=== PATIENT | female | born 1930 | race Caucasian/White ===

== ENCOUNTER 2017-01-23 12:42 | Inpatient (IN) | payer OTHER, BC ==
[~2017-01-23] VITALS: Ht 157.5 cm; Wt 51.9 kg
--- NOTE | ~2017-01-23 | HC ---
[facility] [place] [address] CONSULTATION Name: RIAZ CULP Room #: 515-P [facility] IN M.R.#: [id number] Admission: 01/23/17 Attend Phys: Osmar Cuellar MD Discharge: Date of : [birth year] Report #: [id number] THIS REPORT FOR: //name// CC: Osmar Uribekike DATE OF SERVICE: 01/23/2017 HISTORY OF PRESENT ILLNESS: The patient is an 86-year-old white female who was found on the floor by a neighbor. She was noted to sustain a fall with a closed head injury. She lied on the floor for an undetermined period of time, but it was at least a full day and possibly longer up to 2 days. She had rhabdomyolysis, acute renal insufficiency, significant mental status changes, urinary tract infection. CT of the head was negative. She was noted to have the cognitive changes, laceration to the right elbow. CPK level was elevated. Her renal insufficiency is improving as well as her CPK with IV fluids. She is still very weak and has decreased memory and judgment. We are seeing her in rehabilitation medicine consultation. CT of the head was negative for any acute changes. PAST MEDICAL HISTORY: Is otherwise, benign. She has had a hysterectomy. MEDICATIONS: Please see the full medication listing. SOCIAL HISTORY: She lives in a house alone, did not utilize any gait aids, one step in, 12 inside, laundry is in the basement. The patient refused to bring it up even though the son was encouraging this. Son also was encouraging a Life Alert, which the patient was refusing. The son is involved as well as the neighbor. Did not offer any current complaints of chest pain, shortness of breath or abdominal discomfort. HABITS: She does drink some alcohol at home. She drinks some whiskey. Would drink a bottle of whisky maybe every 3 weeks. The son thought she might take a drink per evening. He notes she did not drink at all while she was raising her children. No history of tobacco abuse. REVIEW OF SYSTEMS: No chest pain, shortness of breath or abdominal discomfort. Complains of overall weakness. Notes some frustration with being here. Indicates she does not want to use the Life Alert when she gets back home. PHYSICAL EXAMINATION: She is a pleasant 86-year-old white female, a bit cantankerous. EOMs are full. Facies are symmetric. Appears to have decreased insight into some safety issues. She may have some mild memory deficits, but I did not do any extensive testing. She seemed quite appropriate as far as her [address] [address] CONSULTATION Name: RIAZ CULP Room #: 515-P [facility] IN ..#: [id number] Admission: 01/23/17 Attend Phys: Osmar Cuellar MD Discharge: Date of : [birth year] Report #: [id number] questions during the conversation. She has functional range of motion with some mild shoulder discomfort, which apparently is premorbid. She has some decreased bilateral shoulder range of motion. She has good strength of elbow, wrist and hand. No lower extremities. Strength is only a grade 3+/5. There is no focal calf swelling. She definitely needed at least a min assist to try to come to stand. She is only ambulating a short distance. She needs minimum assistance. IMPRESSION: An 86-year-old white female with the following problem list: 1. Fall with closed head injury. 2. Rhabdomyolysis. 3. Acute renal insufficiency. 4. Urinary tract infection. 5. Mental status changes. 6. Mobility, ADL and cognitive deficits. PLAN: The patient is a candidate, would benefit from an acute in-hospital inpatient rehabilitation stay. From a preadmission screening perspective: 1. Prior level of function is well delineated above. 2. Expected level of improvement would be for the patient to become modified independent with transfers, mobility and ADLs, so that she can return back to home setting. 3. Evaluation of the patient's risk for clinical complications. She does have multiple medical comorbidities as noted above. 4. Condition that caused the need for rehabilitation would be the closed head injury. 5. Treatments needed would include PT, OT and speech, 1 hour per day each five days a week throughout the duration of the acute inpatient rehabilitation stay. 6. Anticipated discharge destination would be back to the home setting. 7. Would anticipate home healthcare therapies once she is ready for discharge. 8. She meets diagnostic criteria for an acute in-hospital inpatient rehabilitation stay. She meets medical necessity criteria. Would have rehabilitation psychology involved as well. She does have the tolerance for an acute rehabilitation level and has appropriate discharge goals back to the home setting. <ELECTRONICALLY SIGNED> By: Osmar Cuellar MD 01/26/17 1512 1151 06 Osmar Cuellar MD /nt
--- NOTE | ~2017-01-23 | HC ---
[facility] [place] [address] CONSULTATION Name: RIAZ CULP Room #: 515-P [facility] IN ..#: [id number] Admission: 01/23/17 Attend Phys: Osmar Cuellar MD Discharge: 02/03/17 Date of : [birth year] Report #: [id number] THIS REPORT FOR: //name// CC: Osmar Cuellar [facility] DATE OF SERVICE: 01/29/2017 NEUROBEHAVIORAL STATUS EXAM AGE: 86 ATTENDING PHYSICIAN: Osmar Cuellar M.D BOX CAR BRACER: Todd Mcclellan, PhD CLINICAL PRESENTATION: The patient is an 86-year-old female admitted to the [facility] rehabilitation unit for comprehensive inpatient rehabilitation program to improve functional mobility, activities of daily living and self-care and mental status secondary to a fall at her home in which she sustained a traumatic brain injury. She report to have fallen in her garage and had been unattended on the floor for approximately 2 days. She had a diagnosis that include rhabdomyolysis, acute renal insufficiency, mental status changes and a urinary tract infection. A complete description of her medical condition and history along with medications can be found in her medical record. Neuropsychological consultation was requested to provide assistance in the assessment of cognitive and emotional status and to provide recommendations and services. Prior to this most recent medical event, she was living by herself in her own home. She has 1 son. The patient is a high school graduate. 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 The patient was accurate in her description of the neighbor noticing that she was not responding to his attempts to inquire about her well being when emergency services were called to her home. TECHNIQUES UTILIZED: Clinical interview, review of medical records, staff consultation and behavioral observation, mini mental status exam 2 standard version, clock drawing and verbal fluency assessment (letter and category). EXAMINATION FINDINGS: The patient was alert and cooperative with the assessment. She accurately described events surrounding her admission. There is no evidence of aphasia. Her thoughts are logical and goal oriented. There is no evidence of thought disorder. She does not report suicidal ideation, auditory or visual hallucinations. She describes her symptoms as primarily associated with weakness and feelings of anxiety. She does not report [facility] [address] [place] [address] CONSULTATION Name: RIAZ CULP Room #: 515-P [facility] IN [facility].#: [id number] Admission: 01/23/17 Attend Phys: Osmar Cuellar MD Discharge: 02/03/17 Date of : [birth year] Report #: [id number] difficulty with memory, word finding, sleep or appetite. She does indicate that her cognition is within normal limits. Her performance on the MMSE 2 brief version is extremely low with a raw score of 11 of 16, T score 23, percentile rank of less than 1. She was 3/3 for initial registration, 3/5 for orientation to time and 5/[address]. She was 0/3 for immediate recall of 3 items after a brief time delay and distraction. Her score of 11/16, T score 23, percentile rank of less than 1 and a moderate to severe impairment is suggested. Performance on the MMSE 2 standard version is extremely low with a raw score 20 of 30. She was 1/5 for serial sevens, 2/2 for naming, 1/1 for repetition. She was 3/3 for auditory comprehension. She could read and follow single command and write a sentence. The patient was unable to accurately copy a simple geometric design. Difficulty with clock drawing is noted. She was unable to accurately place the numbers of the clock and hands at a designated time. Category fluency was in the borderline range with a raw score of 8, T score at 31 and percentile rank of 3. Letter fluency was extremely low with a raw score of 10 and T score of 26, which is at the first percentile. Throughout the assessment, the patient was showing evidence of perseveration and intrusion errors indicating confabulation. Severe impairment in the management of attention and concentration along with executive dysfunction is suggested. Suggeseted are severe deficits in problem solving, reasoning and judgment. DIAGNOSTIC IMPRESSION: Major neurocognitive disorder (dementia), possibly due to Alzheimer disease, without behavior disorder -- extent to be determined, likely in the moderate range. RECOMMENDATIONS: The patient will require 24-hour care to provide assistance in the management of medication, nutrition and overall safety. Her judgment is very poor. Planning and problem solving is severely impaired. She and her son will benefit from a description of deficts so that appropriate environmental support and compensatory strategies can be developed to maintain safety. A followup neuropsychological evaluation in approximately 2 months may help clarify the severity of underlying neurocognitive deficits. Thank you very much for allowing me to provide the consultation on this patient. <ELECTRONICALLY SIGNED> By: Todd Mcclellan, PhD 02/04/17 1424 1523 0314 Todd Mcclellan, PhD /nt
--- NOTE | ~2017-01-23 | H ---
[facility] [place] [address] HISTORY AND PHYSICAL Name: RIAZ CULP Room #: 515-P [facility] IN M.R.#: [id number] Admission: 01/23/17 Attend Phys: Osmar Cuellar MD Discharge: Date of : [birth year] Report #: [id number] THIS REPORT FOR: //name// CC: Osmar Garces MD DATE OF SERVICE: 01/24/2017 HISTORY OF PRESENT ILLNESS: The patient is an 86-year-old white female, originally found on the floor by a neighbor. She was noted to sustain a fall with a closed head injury and lied on the floor for an undetermined period of time, but it was at least a full day and possibly longer up to 2 days. She was noted to have rhabdomyolysis, acute renal insufficiency, significant mental status changes, urinary tract infection. CT of the head was negative. She was noted to have cognitive changes and laceration to the right elbow. CPK level was elevated. Her renal insufficiency improved as well as her CPK with the IV fluids. She was very weak with decreased memory, judgment and she was felt to be ready for transfer for acute in-hospital inpatient rehabilitation. PAST MEDICAL HISTORY: Otherwise benign. She has a history of hysterectomy. MEDICATIONS: Please see the full medication listing. SOCIAL HISTORY: She lives in a house alone, did not utilize any gait aids, one step in, 12 inside, laundry is in the basement. The patient refused to bring the laundry up even though the son had encouraged this. Son also was noted to be encouraging a Life Alert, which the patient was refusing. The son is involved as well as a neighbor. REVIEW OF SYSTEMS: No current complaints of chest pain, shortness of breath or abdominal discomfort. She has had some generalized pain and Tylenol has helped with that. HABITS: There is a history of some alcohol use at home as per discussion with the son. She is noted to drink a bottle of whisky may be every 3 weeks. The son thought she drank may be a drink at night. She did not have a history of EtOH usage while she was raising her children. ALLERGIES: No note of any drug allergies. PHYSICAL EXAMINATION: GENERAL: She is a pleasant, small statured elderly female, in no obvious distress. She is "slender build". She is sleepy, but was responsive. She was seen earlier. VITAL SIGNS: Last recorded temperature is 98.3, pulse 78, respirations 14 and blood pressure 158/87. [facility] [address] [place] [address] HISTORY AND PHYSICAL Name: RIAZ CULP Room #: 515-P [facility] IN [facility]#: [id number] Admission: 01/23/17 Attend Phys: Osmar Cuellar MD Discharge: Date of : [birth year] Report #: [id number] HEENT: Appeared to be benign. Facies were symmetric. NEUROLOGIC: She again has had some decreased insight into safety issues and was noted to have some mild memory deficits. CHEST: Some diffuse decreased breath sounds. CARDIAC: Sounded regular rate and rhythm. ABDOMEN: Bowel sounds positive, nontender. GENITOURINARY: Deferred. RECTAL: Deferred. EXTREMITIES: She has functional range of motion of both upper extremities with some mild shoulder discomfort, noted to be premorbid. She has some decreased bilateral shoulder range of motion. Good strength of the elbow, wrist and hand and her lower extremity strength is only a grade 3+/5. No focal calf swelling. There was no distal lower extremity edema. She needs min assist trying to come to stand and does have some decreased balance and needs assistance with short distance ambulation. IMPRESSION: An 86-year-old white female with the following problem list: 1. Fall with closed head injury. 2. Rhabdomyolysis. 3. Acute renal insufficiency. 4. Urinary tract infection. 5. Mental status changes. 6. Mobility, activities of daily living and cognitive deficits. PLAN: The patient is admitted for acute in-hospital inpatient rehabilitation. From a post-admission physician evaluation perspective, there are no relevant changes since the preadmission screening. See the above review of prior and current medical and functional conditions and comorbidities. Please see the patient's prior and current functional status. As far as risk of complications, the patient has multiple medical comorbidities as noted above. Initial plan of care involves the interdisciplinary acute inpatient rehabilitation program, the goal of maximizing the patient's functional independence, so that she can hopefully return back to the home setting. She will likely need some increased assistance initially. Measurable functional goals would be for her to become modified independent at least at the walker level and to improve as far as cognition and to become independent ideally with her ADLs. Prognosis is reasonably good. Potential barriers would include the significant functional decline as she has compared to her premorbid status. She meets diagnostic criteria for an acute in-hospital inpatient rehabilitation stay. She does meet medical necessity criteria. She has the tolerance for an acute rehab level and has appropriate discharge goals back to the home setting. [facility] [address] [place] [address] HISTORY AND PHYSICAL Name: RIAZ CULP Room #: 515-P [facility] IN ..#: [id number] Admission: 01/23/17 Attend Phys: Osmar Cuellar MD Discharge: Date of : [birth year] Report #: [id number] Admission medications were individually reconciled at the time of admission. This was done during the admission order process. <ELECTRONICALLY SIGNED> By: Osmar Cuellar MD 01/26/17 1512 0955 1149 Osmar Cuellar MD /nt
--- NOTE | ~2017-01-23 | PLAN ---
[facility] [place] [address] REHAB UNIT PLAN OF CARE Name: RIAZ CULP Room #: 515-P ADM IN M.R.#: [id number] Admission: 01/23/17 Attend Phys: Osmar Cuellar MD Discharge: Date of : [birth year] Report #: [id number] THIS REPORT FOR: //name// CC: Osmar Garces The patient is seen back today in followup. She was in no distress. Last recorded temperature 97.8, pulse 80, respirations 14, and blood pressure 190/90. She has been cooperative and working in therapies. Transfers are contact guard. She is ambulated up to 250 feet contact guard with a front-wheeled walker. In occupational therapy, lower body dressing is mod assist. In speech therapy, she does have zamv-hc-owohcmar comprehensive deficits with ztxz-ud-namsvlio expressive deficits. ASSESSMENT: 1. Fall with closed head injury. 2. Rhabdomyolysis. 3. Acute renal insufficiency. 4. Urinary tract infection. 5. Mental status changes. PLAN: The overall plan of care is based on the preadmission screen, post-admission physician evaluation and information garnered from therapy assessments. 1. Estimated length of stay is dependent upon how she does in therapies. We would anticipate probably at least 7-10 days. 2. Medical prognosis is reasonably good. 3. Anticipated interventions includes the interdisciplinary acute inpatient rehabilitation program with PT, OT and speech, rehabilitation nursing assisting regarding medication management, skin care prophylaxis, bowel and bladder issues and nursing education. Case management is involved as well as the ux consultant physicians. We have neuropsychology involved. 4. Anticipated functional outcomes would be for the patient to hopefully become modified independent with transfers, mobility and ADLs at least at the walker level as well as to improve her overall cognition, so that she can return back to the home setting. 5. Discharge destination would be back home. She is going to need a Life Alert, the son is going to have to bring up laundry and she is going to need some more assistance at least initially. These details will need to be further worked out. 6. Expected therapy by discipline includes PT and OT and speech 1 hour per day each five days a week throughout the duration of the acute inpatient rehabilitation stay. <ELECTRONICALLY SIGNED> By: Osmar Cuellar MD 01/26/17 1513 0958 1224 Osmar Cuellar MD /nt
[~2017-01-23 12:42] MED LIST: NOHOMEMEDICATIONS; NORCO 5-325 TA1 EACH PO; PREDNISONE 10 M10 MG PO
[2017-01-23] MEDS ORDERED: LEVAQUIN 250 M250 MG PO (13:13)
[2017-01-24 06:05] LABS: HEMATOCRIT 37.2 % (37.0-47.0); HEMOGLOBIN 12.5 gm/dL (12.0-15.0); MCHC 33.6 g/dL (28.0-37.0); MCV 86.3 fL (80.0-100.0); RBC 4.31 mil/uL (4.20-5.00); RDW 14.2 % (10.5-14.5); WBC 6.8 thou/uL (4.0-11.0)
[2017-01-24 06:48] LABS: CALCIUM 8.1 mg/dL (8.5-10.1); CREATININE 0.8 mg/dL (0.6-1.3); POTASSIUM 3.4 mmol/L (3.5-5.1)
[2017-01-27 22:48] LABS: URINE BILIRUBIN NEGATIVE (Negative); URINE BLOOD NEGATIVE (Negative); URINE COLOR YELLOW; URINE GLUCOSE-RANDOM* NEGATIVE (Negative); URINE KETONES NEGATIVE (Negative); URINE LEUKOCYTES-REFLEX NEGATIVE (Negative); URINE PROTEIN (DIPSTICK) NEGATIVE (Negative); URINE UROBILINOGEN 0.2 E.U./dl (0.2-1.0)
[2017-01-31 04:58] LABS: HEMATOCRIT 34.5 % (37.0-47.0); HEMOGLOBIN 11.6 gm/dL (12.0-15.0); MCH 29.2 pg (26.0-34.0); MCHC 33.7 g/dL (28.0-37.0); MCV 86.6 fL (80.0-100.0); PLATELET COUNT 277 thou/uL (150-400); RBC 3.98 mil/uL (4.20-5.00); WBC 6.8 thou/uL (4.0-11.0)
[2017-01-31 05:01] LABS: MANUAL DIFF YES
[2017-01-31 05:09] LABS: ALBUMIN 2.3 g/dL (3.4-5.0); CALCIUM 8.3 mg/dL (8.5-10.1); CREATININE 0.9 mg/dL (0.6-1.3); POTASSIUM 4.1 mmol/L (3.5-5.1); TOTAL BILIRUBIN 0.4 mg/dL (<0.1-1.0); TOTAL PROTEIN 5.5 g/dL (6.4-8.2)
[2017-01-31 07:19] LABS: TOTAL CELL COUNT 100
[2017-01-31 07:20] LABS: ABSOLUTE NEUTROPHILS 4.4 thou/uL (1.4-8.2)
[2017-02-03] MEDS ORDERED: ALTACE5 MG PO (09:02)
[2017-02-03] MEDS ORDERED: COLACE 100 MG100 MG PO (09:02)
== END 2017-02-03 18:00 | DRG 914 ==
PROVIDERS: Family Medicine; Physical Medicine & Rehabilitation
DX: S09.90XA Unspecified injury of head, initial encounter (principal); M62.82 Rhabdomyolysis; N17.9 Acute kidney failure, unspecified; N39.0 Urinary tract infection, site not specified; E46 Unspecified protein-calorie malnutrition; E87.1 Hypo-osmolality and hyponatremia; S51.011A Laceration without foreign body of right elbow, initial encounter; I10 Essential (primary) hypertension; R25.1 Tremor, unspecified; K59.00 Constipation, unspecified; F10.10 Alcohol abuse, uncomplicated; F01.50 Vascular dementia, unspecified severity, without behavioral disturbance, psychotic disturbance, mood disturbance, and anxiety; W19.XXXA Unspecified fall, initial encounter; Y93.89 Activity, other specified; Z60.2 Problems related to living alone; Z90.710 Acquired absence of both cervix and uterus; Z68.20 Body mass index [BMI] 20.0-20.9, adult; Z79.899 Other long term (current) drug therapy; Y92.89 Other specified places as the place of occurrence of the external cause; Y99.8 Other external cause status
CPT/HCPCS: 10112

== ENCOUNTER 2017-10-30 18:53 | Inpatient (IN) | payer OTHER, BC ==
[~2017-10-30] VITALS: Ht 157.5 cm; Wt 48.0 kg
--- NOTE | ~2017-10-30 | EKG ---
[address] [address] ELECTROCARDIOGRAM REPORT Name: RIAZ CULP Room #: 170-8 ADM IN M.R.#: [id number] Admission: 10/30/17 Attend Phys: [place] Discharge: Date of : [birth year] Report #: [id number] THIS REPORT FOR: //name// [facility] ED Test Date: 2017-10-30 Test Time: 19:17:31 Pat Name: RIAZ CULP Department: Room: 170 Gender: F Senior Production Supervisor: CADE : 1930 Requested By: Slade Belcher Order Number: [id number] MD: Shilo Gooden Measurements Intervals [place] Rate: 86 P: 51 TN: 154 QRS: -42 QRSD: 87 T: 44 QT: 381 QTc: 456 Interpretive Statements Sinus rhythm Left axis deviation Baseline wander in lead(s) V3,V4 Compared to ECG 01/20/2017 16:41:29 No significant changes Electronically Signed On 10-30-2017 22:34:52 FORMING MACHINE TENDER by Shilo Gooden [email or web address] <ELECTRONICALLY SIGNED> By: Shilo Gooden MD 10/30/17 2234 16 16 Shilo Gooden MD /EPI
[~2017-10-30 18:53] MED LIST changes: +ALTACE5 MG PO; +COLACE 100 MG100 MG PO; +LEVAQUIN 250 M250 MG PO
[2017-10-30 18:57] VITALS: BP 151/80
[2017-10-30 19:27] LABS: ABSOLUTE NEUTROPHILS 9.8 thou/uL (1.4-8.2); BASOPHILS 0.3 % (0.0-2.0); EOSINOPHILS 0.2 % (0.0-3.0); HEMATOCRIT 43.9 % (37.0-47.0); HEMOGLOBIN 14.8 gm/dL (12.0-15.0); LYMPHOCYTES 8.9 % (24.0-44.0); MCH 28.6 pg (26.0-34.0); MCHC 33.8 g/dL (28.0-37.0); MCV 84.7 fL (80.0-100.0); MONOCYTES 9.2 % (1.0-8.0); PLATELET COUNT 295 thou/uL (150-400); POLYS 81.4 % (36.0-66.0); RBC 5.18 mil/uL (4.20-5.00); RDW 14.8 % (10.5-14.5); WBC 12.1 thou/uL (4.0-11.0)
[2017-10-30 19:29] LABS: MANUAL DIFF NO
[2017-10-30 19:34] LABS: CALCIUM 9.5 mg/dL (8.5-10.1); POTASSIUM 4.1 mmol/L (3.5-5.1)
[2017-10-30 19:40] LABS: ALBUMIN 3.8 g/dL (3.4-5.0); DIRECT BILIRUBIN 0.2 mg/dL (<0.1-0.3); TOTAL BILIRUBIN 0.9 mg/dL (<0.1-1.0); TOTAL PROTEIN 7.8 g/dL (6.4-8.2)
[2017-10-30 20:24] LABS: URINE BILIRUBIN NEGATIVE (Negative); URINE BLOOD 1+ (Negative); URINE COLOR YELLOW; URINE GLUCOSE-RANDOM* NEGATIVE (Negative); URINE KETONES 2+ (Negative); URINE LEUKOCYTES-REFLEX NEGATIVE (Negative); URINE PROTEIN (DIPSTICK) NEGATIVE (Negative); URINE SPECIFIC GRAVITY 1.015 (1.005-1.035); URINE UROBILINOGEN 0.2 E.U./dl (0.2-1.0)
[2017-10-30 20:39] LABS: CALCIUM OXALATE 0-3 Few /LPF (None Seen); CASTS None Seen /LPF (None Seen); CRYSTALS None Seen /LPF (None Seen); SQUAMOUS 0-3 Few /LPF (0-3); URINE RBC 0-2 Rare /HPF (0-2); URINE WBC-REFLEX 0-5 Rare /HPF (0-5)
[2017-10-30 21:56] VITALS: BP 154/74
[2017-10-30 22:43] VITALS: BP 118/78
[2017-10-31 04:08] LABS: CALCIUM 7.8 mg/dL (8.5-10.1); CREATININE 0.9 mg/dL (0.6-1.0); POTASSIUM 3.6 mmol/L (3.5-5.1)
[2017-10-31 04:12] VITALS: BP 144/85
[2017-10-31 04:22] LABS: HEMATOCRIT 36.7 % (37.0-47.0); MCH 28.5 pg (26.0-34.0); MCHC 33.5 g/dL (28.0-37.0); MCV 85.3 fL (80.0-100.0); RBC 4.3 mil/uL (4.20-5.00); RDW 14.8 % (10.5-14.5)
[2017-10-31 04:29] LABS: HEMOGLOBIN 12.3 gm/dL (12.0-15.0)
[2017-10-31 08:00] VITALS: BP 153/82
[2017-10-31 16:00] VITALS: BP 147/72
[2017-10-31 20:14] VITALS: BP 137/72
[2017-11-01 04:32] VITALS: BP 135/77
[2017-11-01 07:41] VITALS: BP 163/78
[2017-11-01 16:27] VITALS: BP 139/75
[2017-11-01 19:57] VITALS: BP 147/78
[2017-11-02 06:51] LABS: CALCIUM 8.3 mg/dL (8.5-10.1); CREATININE 0.9 mg/dL (0.6-1.0); MAGNESIUM 1.7 mg/dL (1.8-2.4); POTASSIUM 3.7 mmol/L (3.5-5.1)
[2017-11-02 07:40] LABS: TSH 3.566 uIU/mL (0.358-3.740)
[2017-11-02 08:00] VITALS: BP 137/77
== END 2017-11-02 17:20 | DRG 392 ==
LOC: ER 18:53 → 4S 21:15 → EROBS 21:15 → 4S 22:11
PROVIDERS: Emergency Medicine; Nurse Practitioner Family; Registered Nurse
DX: K52.9 Noninfective gastroenteritis and colitis, unspecified (principal); M62.82 Rhabdomyolysis; I10 Essential (primary) hypertension; D72.829 Elevated white blood cell count, unspecified; F32.9 Major depressive disorder, single episode, unspecified; E86.0 Dehydration; F03.90 Unspecified dementia, unspecified severity, without behavioral disturbance, psychotic disturbance, mood disturbance, and anxiety; W18.30XA Fall on same level, unspecified, initial encounter; Z87.828 Personal history of other (healed) physical injury and trauma; Z90.710 Acquired absence of both cervix and uterus; Y93.89 Activity, other specified; Y92.098 Other place in other non-institutional residence as the place of occurrence of the external cause; Y99.8 Other external cause status; Z28.21 Immunization not carried out because of patient refusal
CPT/HCPCS: 10195

== ENCOUNTER 2018-09-30 10:07 | Emergency (ER) | payer OTHER, BC ==
[~2018-09-30] VITALS: Ht 157.5 cm; Wt 50.8 kg
[~2018-09-30 10:07] MED LIST changes: +PEPCID20 MG PO
[2018-09-30 10:09] VITALS: BP 180/90
[2018-09-30] MEDS ORDERED: RAMIPRIL5 MG PO (11:07)
== END 2018-09-30 11:28 | disposition home or self-care (01) ==
LOC: ER 10:07
DX: S41.111A Laceration without foreign body of right upper arm, initial encounter (principal); I10 Essential (primary) hypertension; F03.90 Unspecified dementia, unspecified severity, without behavioral disturbance, psychotic disturbance, mood disturbance, and anxiety; Z90.710 Acquired absence of both cervix and uterus; W01.0XXA Fall on same level from slipping, tripping and stumbling without subsequent striking against object, initial encounter; Y93.01 Activity, walking, marching and hiking; Y92.009 Unspecified place in unspecified non-institutional (private) residence as the place of occurrence of the external cause; Y99.8 Other external cause status

== ENCOUNTER 2018-11-22 05:03 | Inpatient (IN) | payer OTHER, BC ==
[~2018-11-22] VITALS: Ht 157.5 cm; Wt 50.8 kg
[2018-11-22] VITALS (12 sets, daily range): BP systolic 136–183; BP diastolic 78–105
[~2018-11-22 05:03] MED LIST changes: +RAMIPRIL5 MG PO
[2018-11-22 05:30] LABS: ABSOLUTE NEUTROPHILS 5.9 thou/uL (1.4-8.2); BASOPHILS 0.5 % (0.0-2.0); EOSINOPHILS 0.7 % (0.0-3.0); HEMATOCRIT 43.5 % (37.0-47.0); HEMOGLOBIN 14.6 gm/dL (12.0-15.0); LYMPHOCYTES 27.6 % (24.0-44.0); MCH 29.3 pg (26.0-34.0); MCHC 33.7 g/dL (28.0-37.0); MONOCYTES 9.3 % (1.0-8.0); PLATELET COUNT 264 thou/uL (150-400); POLYS 61.9 % (36.0-66.0); RBC 4.99 mil/uL (4.20-5.00); RDW 13.9 % (10.5-14.5); WBC 9.6 thou/uL (4.0-11.0)
[2018-11-22 05:39] LABS: ANION GAP 12 mmol/L (7-16); BUN 20 mg/dL (7-18); CALCIUM 9.4 mg/dL (8.5-10.1); CHLORIDE 95 mmol/L (98-107); CO2 23 mmol/L (21-32); CREATININE 1.3 mg/dL (0.6-1.0); GLUCOSE 133 mg/dL (74-106); POTASSIUM 4.5 mmol/L (3.5-5.1); SODIUM 130 mmol/L (136-145)
[2018-11-22 05:47] LABS: SGOT 42 U/L (15-37); SGPT 27 U/L (30-65); TOTAL BILIRUBIN 0.5 mg/dL (<0.1-1.0); TOTAL PROTEIN 8.3 g/dL (6.4-8.2); TROPONIN-I <0.06 ng/mL (<0.06)
[2018-11-22 08:01] LABS: URINE CLARITY CLEAR; URINE COLOR YELLOW; URINE PROTEIN (DIPSTICK) TRACE (Negative); URINE SPECIFIC GRAVITY 1.015 (1.005-1.035)
[2018-11-22 08:02] LABS: URINE BILIRUBIN NEGATIVE (Negative); URINE BLOOD TRACE (Negative); URINE GLUCOSE-RANDOM* NEGATIVE (Negative); URINE KETONES NEGATIVE (Negative); URINE NITRITE-REFLEX NEGATIVE (Negative); URINE UROBILINOGEN 0.2 E.U./dl (0.2-1.0)
[2018-11-22 08:03] LABS: URINE LEUKOCYTES-REFLEX NEGATIVE (Negative)
--- NOTE | 2018-11-22 08:32 | EKG ---
[address] [place] [place] [address] ELECTROCARDIOGRAM REPORT Name: RIAZ CULP Room #: 364-P ADM IN M.R.#: [id number] Admission: 11/22/18 Attend Phys: Vamshi Lockett MD Discharge: Date of : [birth year] Report #: [id number] THIS REPORT FOR: //name// [facility] ED Test Date: 2018-11-22 Test Time: 06:01:47 Pat Name: RIAZ CULP Department: Room: 364 Gender: F Diesel Truck Mechanic: YUE : 1930 Requested By: Jane Gore Order Number: [id number] MD: Steven Jacobo Measurements Intervals [place] Rate: 83 P: 61 NC: 161 QRS: -27 QRSD: 97 T: 62 QT: 387 QTc: 455 Interpretive Statements Sinus rhythm No significant abnormality Baseline wander in lead(s) V5 Compared to ECG 07/30/2018 21:37:15 Early R-wave progression is no longer present Electronically Signed On 11-22-2018 8:32:52 PSYCHIATRIC SPECIALIST by Steven Jacobo [email or web address] <ELECTRONICALLY SIGNED> By: Steven Jacobo MD, [facility] 11/22/18 0832 0601 06 Steven Jacobo MD, [facility] /EPI
--- NOTE | 2018-11-22 10:51 | HC ---
[facility] [place] [address] CONSULTATION Name: RIAZ CULP Room #: 364-P ADM IN M.R.#: [id number] Admission: 11/22/18 Attend Phys: Vamshi Lockett MD Discharge: Date of : [birth year] Report #: [id number] THIS REPORT FOR: //name// CC: Osmar Lockett Gale Dash DATE OF SERVICE: 11/22/2018 CHIEF COMPLAINT: Left proximal femur fracture. HISTORY OF PRESENT ILLNESS: This frail 88-year-old female became dizzy and fell, injuring the left hip. She has no other injuries. X-rays confirm an intertrochanteric left femur fracture with displacement. At the time of my evaluation, she is accompanied by her son. She is somewhat frail, confused and hard of hearing, making evaluation difficult. In general, however, she seems to understand the situation. She states she has no other areas of discomfort. The left hip is uncomfortable with any movement. Objectively, there is no obvious shortening or rotational deformity. Distal neurologic status appears to be intact. The opposite right lower extremity appears to be normal. X-rays of the pelvis and left hip reveal an intertrochanteric fracture with displacement. She has mild degenerative osteoarthritis as well. IMPRESSION AND PLAN: Left proximal femur fracture. I have discussed with the patient and her son treatment options. They prefer to go ahead with surgical repair using a TFN nail fixation device. Pending medical clearance and OR availability, we may be able to proceed today. <ELECTRONICALLY SIGNED> By: Osmar Christensen MD 11/22/18 1051 1032 1050 Osmar Christensen MD /nt
[2018-11-23] VITALS (8 sets, daily range): BP systolic 112–158; BP diastolic 73–88
[2018-11-23 05:40] LABS: ABSOLUTE NEUTROPHILS 7.1 thou/uL (1.4-8.2); BASOPHILS 0.1 % (0.0-2.0); HEMATOCRIT 36.3 % (37.0-47.0); LYMPHOCYTES 13.6 % (24.0-44.0); MCH 29.1 pg (26.0-34.0); MCHC 33.9 g/dL (28.0-37.0); MCV 85.9 fL (80.0-100.0); MONOCYTES 11.7 % (1.0-8.0); PLATELET COUNT 227 thou/uL (150-400); POLYS 74.6 % (36.0-66.0); RBC 4.22 mil/uL (4.20-5.00); RDW 13.5 % (10.5-14.5); WBC 9.5 thou/uL (4.0-11.0)
[2018-11-23 05:41] LABS: CALCIUM 8.1 mg/dL (8.5-10.1); MAGNESIUM 1.8 mg/dL (1.8-2.4)
[2018-11-23 05:50] LABS: HEMOGLOBIN 12.3 gm/dL (12.0-15.0)
--- NOTE | 2018-11-23 14:08 | O ---
[facility] [place] [address] OPERATIVE REPORT Name: RIAZ CULP Room #: 364-P ADM IN M.R.#: [id number] Admission: 11/22/18 Attend Phys: [place] Neumann Discharge: Date of : [birth year] Report #: [id number] THIS REPORT FOR: //name// CC: Osmar Dash DATE OF SERVICE: 11/22/2018 PREOPERATIVE DIAGNOSIS: Left proximal femur fracture. POSTOPERATIVE DIAGNOSIS: Left proximal femur fracture. PROCEDURE: Open reduction and internal fixation of left proximal femur fracture using TFN nail fixation. SURGEON: Osmar Christensen MD. INDICATIONS: This frail 88-year-old female is still reasonably active and has been living independently. She fell injuring the left hip. X-rays confirmed an unstable intertrochanteric fracture. We have discussed treatment options and elected to go ahead with surgical repair. DESCRIPTION OF PROCEDURE: The patient was taken to the operating room where she was placed under general anesthesia. Prophylactic intravenous antibiotics were administered. She was positioned on the fracture table and gentle longitudinal traction applied. The fracture reduced nicely. The lateral aspect of the left hip and thigh were then meticulously prepped and draped. A skin incision was made just proximal to the greater trochanter and a guidewire was passed through the greater trochanter down the canal. The trochanter was opened with a reamer and a [employer] TFN nail was inserted. The 10 mm diameter x 170 mm length nail was selected. This was advanced to an appropriate level and appeared to be snug. A lateral guidewire was then placed in the femoral neck and head. This was positioned nicely in the lower neck seen on the anterior view. It is slightly more anterior when viewed on the lateral view. Nevertheless, it appears to be in satisfactory position. This was measured and an 85 mm helical blade was inserted. This was impacted to a point about 1 cm below the subchondral bone of the femoral head. A distal interlocked screw was placed using the outrigger guide. Position and stability of the construct looked excellent. The wounds were copiously irrigated and then closed using #1 Vicryl and skin brianna. A sterile dressing was applied. The patient was awakened and returned to recovery room in good condition. <ELECTRONICALLY SIGNED> By: Osmar Christensen MD 11/23/18 [id number] 1829 Osmar Christensen MD /nt
[2018-11-24 03:05] VITALS: BP 136/73
[2018-11-24 04:03] VITALS: BP 133/81
[2018-11-24 07:13] VITALS: BP 124/77
[2018-11-24 11:47] VITALS: BP 134/73
[2018-11-24 16:28] VITALS: BP 111/67
[2018-11-24 20:03] VITALS: BP 117/65
[2018-11-25 08:10] VITALS: BP 149/85
[2018-11-25 20:56] VITALS: BP 103/60
[2018-11-26 09:01] VITALS: BP 123/72
[2018-11-26] MEDS ORDERED: COLACE 100 MG100 MG PO (11:22)
== END 2018-11-26 14:32 | DRG 480 ==
LOC: ER 05:03 → 3W 06:31 → EROBS 06:31 → 3W 08:10 → SICU 11-25 14:48
PROVIDERS: Nurse Practitioner; Student in an Organized Health Care Education/Training Program; ADMIT Hospitalist
PROC: 0QS706Z Reposition Left Upper Femur with Intramedullary Internal Fixation Device, Open Approach (ICD-10-PCS; principal; 2018-11-22)
DX: S72.142A Displaced intertrochanteric fracture of left femur, initial encounter for closed fracture (principal); N17.0 Acute kidney failure with tubular necrosis; E87.1 Hypo-osmolality and hyponatremia; M62.82 Rhabdomyolysis; N17.9 Acute kidney failure, unspecified; I10 Essential (primary) hypertension; W18.39XA Other fall on same level, initial encounter; Y93.01 Activity, walking, marching and hiking; F03.90 Unspecified dementia, unspecified severity, without behavioral disturbance, psychotic disturbance, mood disturbance, and anxiety; E03.9 Hypothyroidism, unspecified; S51.012A Laceration without foreign body of left elbow, initial encounter; H91.90 Unspecified hearing loss, unspecified ear; M16.12 Unilateral primary osteoarthritis, left hip; E86.0 Dehydration; Z60.2 Problems related to living alone; Z66 Do not resuscitate; Z90.710 Acquired absence of both cervix and uterus; Z79.899 Other long term (current) drug therapy; Y92.093 Driveway of other non-institutional residence as the place of occurrence of the external cause; Y99.8 Other external cause status
CPT/HCPCS: 10879; 15002; 50010; 50101; 50133; 50386; 51412; 51538; 51817; 52145; 52146; 55430; 56525; 57092; 62110; 62900; 70005